=== PATIENT | female | born 1940 | race Caucasian/White ===

== ENCOUNTER 2017-04-16 12:01 | Inpatient (IN) ==
[2017-04-16 13:39] LABS: Basophils % 0.2 % (0.0-0.8); Eosinophils # 0.4 10*3/uL (0.0-0.87); Hematocrit 20.2 VOL% (35.7-47.0); Immature Granulocytes Absolute 0.19 #; Lymphocytes # 1.2 10*3/uL (1.4-4.0); Lymphocytes % 6.4 % (21.3-54.2); Mean Corpuscular HGB Conc 31.2 GM/DL (32-36); Mean Corpuscular Hemoglobin 26 PG (27-34); Mean Corpuscular Volume 83.8 FL (87-102); Mean Platelet Volume 9.8 FL (9.6-12.0); Monocytes # 1.2 10*3/uL (0.11-0.8); Monocytes % 6.7 % (1.7-12.7); Neutrophils # 15.4 10*3/uL (1.4-7.4); Neutrophils % 83.7 % (38.7-73.9); Platelet Count 455 T/CUMM (130-400); Red Blood Count 2.41 MC/CUMM (3.8-5.5); White Blood Count 18.3 T/CUMM (4-12)
[2017-04-16 13:43] LABS: Hemoglobin 6.3 GM/DL (12.0-16.0)
[2017-04-16 13:49] LABS: INR 1.1; PT Patient Result 11.2 SECS; Partial Thromboplastin Time 27.8 SECS (0-40)
[2017-04-16] MEDS ORDERED: chlorproMAZINE INJ 25 MG in SODIUM CHLORIDE 0.9% 100 ML IV PRN (13:49)
[2017-04-16] MEDS ORDERED: ALPRAZolam 0.25 MG TABLET PO PRN (13:49)
[2017-04-16] MEDS ORDERED: chlorproMAZINE 25 MG TABLET PO PRN (13:49)
[2017-04-16] MEDS ORDERED: BENZTROPINE 2 MG/2 ML AMP IV PRN (13:49)
[2017-04-16] MEDS ORDERED: chlorproMAZINE INJ 50 MG in SODIUM CHLORIDE 0.9% 100 ML IV PRN (13:49)
[2017-04-16] MEDS ORDERED: ALUMINUM/MAGNES/SIMETH MAX STR 30 ML UDCUP PO PRN (13:49)
[2017-04-16] MEDS ORDERED: ONDANSETRON 4 MG/2 ML VIAL IV PRN (13:49)
[2017-04-16] MEDS ORDERED: MAGNESIUM HYDROXIDE SUSP 30 ML UDCUP PO PRN (13:49)
[2017-04-16] MEDS ORDERED: MYLANTA/LIDO VISC 2:1 300 ML BOTTLE SWISH/SWAL PRN (13:49)
[2017-04-16] MEDS ORDERED: TEMAZEPAM 7.5 MG CAPSULE PO PRN (13:49)
[2017-04-16] MEDS ORDERED: diphenhydrAMINE CAP 25 MG CAPSULE PO PRN (13:49)
[2017-04-16] MEDS ORDERED: PROMETHAZINE INJ 25 MG in SODIUM CHLORIDE 0.9% 50 ML IV PRN (13:49)
[2017-04-16] MEDS ORDERED: LACTULOSE 20 GM/30 ML UDCUP PO PRN (13:49)
[2017-04-16] MEDS ORDERED: MYLANTA/LIDO VISC 2:1 300 ML BOTTLE SWISH/SPIT PRN (13:49)
[2017-04-16] MEDS ORDERED: LOPERAMIDE 2 MG CAPSULE PO PRN ×2 (13:49)
[2017-04-16] MEDS ORDERED: traMADol 50 MG TABLET PO PRN (13:49)
[2017-04-16] MEDS ORDERED: ACETAMINOPHEN 325 MG TABLET PO PRN (13:49)
[2017-04-16] MEDS ORDERED: SODIUM CHLORIDE 0.9% 1,000 ML IV PRN (13:50)
[2017-04-16] MEDS ORDERED: HYDROmorphone 2 MG/1 ML VIAL IV STA (13:50)
[2017-04-16] MEDS ORDERED: ONDANSETRON 4 MG/2 ML VIAL IV STA (13:50)
[2017-04-16 14:09] LABS: Albumin 1.5 G/DL (3.4-5.0); Bilirubin,Total 0.4 MG/DL (0.2-1.0); Calcium 7.7 MG/DL (8.5-10.1); Osmolality,Calculated 252.4 MOS/KG (273-304); Potassium 5.4 MMOL/L (3.5-5.1); Total Protein 4.7 G/DL (6.4-8.3)
[2017-04-16 14:13] LABS: Apearance,Urine CLEAR (Clear); Bilirubin,Urine Negative (Negative); Blood, Urine Negative (Negative); Glucose,Urine (UA) Negative (Negative); Hyaline Casts,Urine 1 /LPF (0-3); Ketones,Urine 5 mg/dL (Negative); Mucus,Urine Occasional /LPF (Occasional); Nitrite,Urine Negative (Negative); Protein,Urine Negative; RBC,Urine 1 /HPF (0-4); Urine Color Yellow (Yellow); Urine Specific Gravity 1.012 (1.001-1.035); Urine Urobilinogen < 2.0 EU/DL (0.2-1.0); WBC,Urine 1 /HPF (0-6)
[2017-04-16] MEDS ORDERED: HYDROmorphone 2 MG/1 ML VIAL ONE (14:52)
[2017-04-16] MEDS: SODIUM CHLORIDE 0.9% 1,000 ML IV SCH (17:49)
[2017-04-17 05:10] LABS: Basophils # 0.1 10*3/uL (0.0-0.2); Basophils % 0.4 % (0.0-0.8); Eosinophils # 0.3 10*3/uL (0.0-0.87); Eosinophils % 2.1 % (0.00-10.9); Hematocrit 31.8 VOL% (35.7-47.0); Immature Granulocytes % 0.7 %; Immature Granulocytes Absolute 0.11 #; Lymphocytes % 5.8 % (21.3-54.2); Mean Corpuscular HGB Conc 34.6 GM/DL (32-36); Mean Corpuscular Hemoglobin 29 PG (27-34); Mean Corpuscular Volume 83.9 FL (87-102); Mean Platelet Volume 9.6 FL (9.6-12.0); Monocytes # 1.3 10*3/uL (0.11-0.8); Monocytes % 8.2 % (1.7-12.7); Neutrophils # 13.5 10*3/uL (1.4-7.4); Neutrophils % 82.8 % (38.7-73.9); Platelet Count 383 T/CUMM (130-400); Red Blood Count 3.79 MC/CUMM (3.8-5.5); White Blood Count 16.3 T/CUMM (4-12)
[2017-04-17] MEDS: SODIUM CHLORIDE 0.9% 1,000 ML IV SCH ×3 (08:17→19:46)
[2017-04-17] MEDS: cefTRIAXone 1,000 MG in SYRINGE 1 EACH IV SCH (08:17)
[2017-04-17] MEDS ORDERED: PANTOPRAZOLE 40 MG TABLET PO SCH (09:00)
[2017-04-17 10:45] LABS: Albumin 1.4 G/DL (3.4-5.0); Bilirubin,Total 0.6 MG/DL (0.2-1.0); Calcium 7.7 MG/DL (8.5-10.1); Osmolality,Calculated 257.9 MOS/KG (273-304); Potassium 4.7 MMOL/L (3.5-5.1); Total Protein 4.3 G/DL (6.4-8.3)
[2017-04-17] MEDS ORDERED: TEMAZEPAM 7.5 MG CAPSULE PO SCH (21:00)
[2017-04-18 06:59] LABS: Basophils # 0.1 10*3/uL (0.0-0.2); Basophils % 0.5 % (0.0-0.8); Eosinophils # 0.5 10*3/uL (0.0-0.87); Eosinophils % 2.6 % (0.00-10.9); Hematocrit 37.8 VOL% (35.7-47.0); Hemoglobin 12.7 GM/DL (12.0-16.0); Immature Granulocytes Absolute 0.17 #; Lymphocytes # 0.8 10*3/uL (1.4-4.0); Lymphocytes % 4.6 % (21.3-54.2); Mean Corpuscular HGB Conc 33.6 GM/DL (32-36); Mean Corpuscular Hemoglobin 29 PG (27-34); Mean Corpuscular Volume 84.8 FL (87-102); Mean Platelet Volume 10.4 FL (9.6-12.0); Monocytes # 0.9 10*3/uL (0.11-0.8); Monocytes % 5.3 % (1.7-12.7); Neutrophils # 14.9 10*3/uL (1.4-7.4); Platelet Count 367 T/CUMM (130-400); Red Blood Count 4.46 MC/CUMM (3.8-5.5); Red Cell Distribution Width 15.3 % (9.3-17.3); White Blood Count 17.3 T/CUMM (4-12)
[2017-04-18 07:30] LABS: Band Neutrophils 8 % (0-10); Hypochromasia Slight; Lymphocytes 3 % (20-55); Platelet Estimate Adequate; Segmented Neutrophils 81 % (50-85); Total Cells Counted 100
[2017-04-18 07:38] LABS: Albumin 1.4 G/DL (3.4-5.0); Bilirubin,Total 0.8 MG/DL (0.2-1.0); Calcium 7.9 MG/DL (8.5-10.1); Magnesium 1.8 MG/DL (1.8-2.4); Osmolality,Calculated 259.7 MOS/KG (273-304); Potassium 4.7 MMOL/L (3.5-5.1); Total Protein 4.8 G/DL (6.4-8.3)
[2017-04-18] MEDS: cefTRIAXone 1,000 MG in SYRINGE 1 EACH IV SCH (09:32)
[2017-04-18] MEDS: DEXTROSE 5% NACL 0.45% 1,000 ML IV SCH ×2 (09:32→22:52)
[2017-04-18] MEDS: PANTOPRAZOLE 40 MG TABLET PO SCH ×2 (09:32→20:52)
[2017-04-18] MEDS: SODIUM CHLORIDE 0.9% 1,000 ML IV SCH (10:40)
[2017-04-18] MEDS: TEMAZEPAM 7.5 MG CAPSULE PO SCH (20:52)
[2017-04-19 03:31] LABS: Basophils # 0.1 10*3/uL (0.0-0.2); Basophils % 0.4 % (0.0-0.8); Eosinophils # 0.6 10*3/uL (0.0-0.87); Eosinophils % 3.2 % (0.00-10.9); Hematocrit 37.2 VOL% (35.7-47.0); Hemoglobin 11.8 GM/DL (12.0-16.0); Immature Granulocytes % 1.1 %; Lymphocytes % 5.4 % (21.3-54.2); Mean Corpuscular HGB Conc 31.7 GM/DL (32-36); Mean Corpuscular Hemoglobin 28 PG (27-34); Mean Corpuscular Volume 87.5 FL (87-102); Mean Platelet Volume 9.8 FL (9.6-12.0); Monocytes # 1.1 10*3/uL (0.11-0.8); Neutrophils # 15.3 10*3/uL (1.4-7.4); Neutrophils % 83.9 % (38.7-73.9); Platelet Count 325 T/CUMM (130-400); Red Blood Count 4.25 MC/CUMM (3.8-5.5); Red Cell Distribution Width 15.7 % (9.3-17.3); White Blood Count 18.3 T/CUMM (4-12)
[2017-04-19 03:58] LABS: Calcium 7.7 MG/DL (8.5-10.1); Magnesium 1.7 MG/DL (1.8-2.4); Osmolality,Calculated 257.8 MOS/KG (273-304); Potassium 4.3 MMOL/L (3.5-5.1)
[2017-04-19] MEDS: cefTRIAXone 1,000 MG in SYRINGE 1 EACH IV SCH (09:59)
[2017-04-19] MEDS: PANTOPRAZOLE 40 MG TABLET PO SCH ×2 (10:02→20:45)
[2017-04-19] MEDS: DEXTROSE 5% NACL 0.45% 1,000 ML IV SCH (12:47)
[2017-04-19] MEDS: TEMAZEPAM 7.5 MG CAPSULE PO SCH (20:44)
[2017-04-19] MEDS: guaiFENesin 200 MG/10 ML UDCUP PO PRN (20:44)
[2017-04-20] MEDS: DEXTROSE 5% NACL 0.45% 1,000 ML IV SCH ×2 (01:09→18:18)
[2017-04-20] MEDS: guaiFENesin 200 MG/10 ML UDCUP PO PRN (03:00)
[2017-04-20] MEDS ORDERED: guaiFENesin/CODEINE 5 ML LIQUID PO PRN (08:55)
[2017-04-20] MEDS ORDERED: FUROSEMIDE 20 MG/2 ML VIAL IV ONE (08:58)
[2017-04-20] MEDS: PANTOPRAZOLE 40 MG TABLET PO SCH ×2 (09:35→21:25)
[2017-04-20] MEDS: cefTRIAXone 1,000 MG in SYRINGE 1 EACH IV SCH (09:37)
[2017-04-20] MEDS: TEMAZEPAM 7.5 MG CAPSULE PO SCH (21:25)
[2017-04-21] MEDS: PANTOPRAZOLE 40 MG TABLET PO SCH ×2 (08:22→21:26)
[2017-04-21] MEDS: cefTRIAXone 1,000 MG in SYRINGE 1 EACH IV SCH (08:22)
[2017-04-21] MEDS: guaiFENesin/CODEINE 5 ML LIQUID PO SCH (15:59)
[2017-04-21] MEDS: DEXTROSE 5% NACL 0.45% 1,000 ML IV SCH (19:18)
[2017-04-21] MEDS: TEMAZEPAM 7.5 MG CAPSULE PO SCH (21:26)
[2017-04-22] MEDS: guaiFENesin/CODEINE 5 ML LIQUID PO SCH ×5 (00:36→21:01)
[2017-04-22] MEDS: cefTRIAXone 1,000 MG in SYRINGE 1 EACH IV SCH (08:51)
[2017-04-22] MEDS: PANTOPRAZOLE 40 MG TABLET PO SCH ×2 (08:51→21:00)
[2017-04-22] MEDS: methylPREDNISolone SOD SUC 40 MG/1 ML VIAL IV SCH (16:17)
[2017-04-22] MEDS: LEVOFLOXACIN INJ 500 MG in PREMIX 1 EACH IV SCH (16:17)
[2017-04-22] MEDS: DEXTROSE 5% NACL 0.45% 1,000 ML IV SCH (16:18)
[2017-04-22] MEDS: TEMAZEPAM 7.5 MG CAPSULE PO SCH (21:00)
[2017-04-23] MEDS: MORPHINE 2 MG/1 ML SYRINGE IV PRN ×4 (00:08→19:30)
[2017-04-23] MEDS: methylPREDNISolone SOD SUC 40 MG/1 ML VIAL IV SCH ×2 (01:52→17:17)
[2017-04-23 05:43] LABS: Basophils % 0.2 % (0.0-0.8); Eosinophils % 0.1 % (0.00-10.9); Hematocrit 29.7 VOL% (35.7-47.0); Hemoglobin 9.9 GM/DL (12.0-16.0); Immature Granulocytes Absolute 0.18 #; Lymphocytes # 0.6 10*3/uL (1.4-4.0); Lymphocytes % 3.4 % (21.3-54.2); Mean Corpuscular HGB Conc 33.3 GM/DL (32-36); Mean Corpuscular Hemoglobin 28 PG (27-34); Mean Corpuscular Volume 84.4 FL (87-102); Mean Platelet Volume 10.1 FL (9.6-12.0); Monocytes # 0.4 10*3/uL (0.11-0.8); Monocytes % 2.1 % (1.7-12.7); Neutrophils # 17.3 10*3/uL (1.4-7.4); Neutrophils % 93.2 % (38.7-73.9); Platelet Count 277 T/CUMM (130-400); Red Blood Count 3.52 MC/CUMM (3.8-5.5); Red Cell Distribution Width 15.4 % (9.3-17.3); White Blood Count 18.6 T/CUMM (4-12)
[2017-04-23 06:13] LABS: Band Neutrophils 1 % (0-10); Burr Cells Slight; Giant Platelets Few; Hypochromasia 1+; Lymphocytes 3 % (20-55); Ovalocytes Slight; Platelet Estimate Adequate; Segmented Neutrophils 95 % (50-85); Total Cells Counted 100
[2017-04-23 06:14] LABS: Alanine Aminotransferase < 9 U/L (13-56); Albumin 1.1 G/DL (3.4-5.0); Alkaline Phosphatase 156 U/L (45-117); Aspartate Amino Transferase 20 U/L (0-37); Blood Urea Nitrogen 14 MG/DL (7-18); Calcium 7.6 MG/DL (8.5-10.1); Glucose 132 MG/DL (74-106); Magnesium 1.5 MG/DL (1.8-2.4); Osmolality,Calculated 262.8 MOS/KG (273-304); Potassium 4.2 MMOL/L (3.5-5.1); Sodium 130 MMOL/L (136-145); Total Protein 4.2 G/DL (6.4-8.3)
[2017-04-23] MEDS: guaiFENesin/CODEINE 5 ML LIQUID PO SCH ×4 (06:23→21:08)
[2017-04-23] MEDS: cefTRIAXone 1,000 MG in SYRINGE 1 EACH IV SCH (09:09)
[2017-04-23] MEDS: PANTOPRAZOLE 40 MG TABLET PO SCH ×2 (09:10→21:08)
[2017-04-23] MEDS: DEXTROSE 5% NACL 0.45% 1,000 ML IV SCH (17:15)
[2017-04-23] MEDS: LEVOFLOXACIN INJ 500 MG in PREMIX 1 EACH IV SCH (17:18)
[2017-04-23] MEDS: TEMAZEPAM 7.5 MG CAPSULE PO SCH (21:08)
[2017-04-24] MEDS: methylPREDNISolone SOD SUC 40 MG/1 ML VIAL IV SCH ×2 (02:07→16:48)
[2017-04-24] MEDS: guaiFENesin/CODEINE 5 ML LIQUID PO SCH ×2 (06:35→13:37)
[2017-04-24] MEDS: cefTRIAXone 1,000 MG in SYRINGE 1 EACH IV SCH (09:38)
[2017-04-24] MEDS: PANTOPRAZOLE 40 MG TABLET PO SCH ×2 (09:38→21:32)
[2017-04-24] MEDS: MORPHINE 2 MG/1 ML SYRINGE IV PRN (10:48)
[2017-04-24] MEDS: LEVOFLOXACIN INJ 500 MG in PREMIX 1 EACH IV SCH (13:37)
[2017-04-24] MEDS: TEMAZEPAM 7.5 MG CAPSULE PO SCH (21:38)
[2017-04-25] MEDS: guaiFENesin/CODEINE 5 ML LIQUID PO SCH ×2 (00:53→07:20)
[2017-04-25] MEDS: DEXTROSE 5% NACL 0.45% 1,000 ML IV SCH (02:06)
[2017-04-25] MEDS: methylPREDNISolone SOD SUC 40 MG/1 ML VIAL IV SCH (02:07)
[2017-04-25] MEDS: MORPHINE 2 MG/1 ML SYRINGE IV PRN (02:10)
[2017-04-25 09:04] VITALS: BP 119/69
[2017-04-25] MEDS: cefTRIAXone 1,000 MG in SYRINGE 1 EACH IV SCH (10:15)
[2017-04-25] MEDS: PANTOPRAZOLE 40 MG TABLET PO SCH ×2 (10:16→10:17)
== END 2017-04-25 12:00 | DRG 194 ==
LOC: EDBD → EDUNIT# → N.ED 12:01 → N.EDINP 13:48 → N.4E 15:20
PROVIDERS: ADMIT Specialist; ATTEND Specialist